=== PATIENT | female | born 1995 | race Caucasian/White ===

== ENCOUNTER 2016-10-24 18:35 | Observation (INO) | payer OTHER ==
[~2016-10-24] VITALS: Ht 160 cm; Wt 73.9 kg
[~2016-10-24 18:35] MED LIST: ACET-6134 PO; FERR-252 PO; PREN-385 PO
[2016-10-24 19:00] VITALS: BP 110/54
[2016-10-24] MEDS ORDERED: TERBUTALINE 1 MG/ML VIAL SUBQ ONE ×2 (19:30→21:27)
[2016-10-24] MEDS ORDERED: TERB2.5T6 PO (19:38)
[2016-10-24 20:04] LABS: BASOPHILS # (AUTO) 0.1 K/uL (0.00-0.22); BASOPHILS % (AUTO) 0.9 % (0.0-2.0); EOSINOPHILS # (AUTO) 0.1 K/uL (0-0.4); EOSINOPHILS % (AUTO) 0.7 % (0.0-4.0); HEMATOCRIT 32.7 % (36-48); HEMOGLOBIN 10.5 g/dL (12.0-16.0); LYMPHOCYTES # (AUTO) 2.4 K/uL (2.5-16.5); LYMPHOCYTES % (AUTO) 20.9 % (20.5-51.1); MEAN CORPUSCULAR HEMOGLOBIN 25 pg (27-31); MEAN CORPUSCULAR HGB CONC 32 g/dL (33-37); MEAN CORPUSCULAR VOLUME 79 fL (80-94); MONOCYTES # (AUTO) 0.9 K/uL (0.8-1.0); MONOCYTES % (AUTO) 7.7 % (1.7-9.3); NEUTROPHILS # (AUTO) 8.2 K/uL (1.8-7.7); NEUTROPHILS % (AUTO) 69.8 % (42.2-75.2); PLATELET COUNT (AUTO) 430 K/uL (140-450); RED BLOOD CELL COUNT(AUTO) 4.16 MIL/uL (4.20-5.40); RED CELL DISTRIBUTION WIDTH 13.9 % (11.6-13.7); WHITE BLOOD COUNT (AUTO) 11.7 K/uL (4.5-11.0)
[2016-10-24 20:26] LABS: PROTHROMBIN TIME 8.7 secs (10.8-13.4)
[2016-10-24] MEDS: LACTATED RINGERS 1,000 ML IV SCH ×2 (20:50→21:02)
[2016-10-24] MEDS ORDERED: BETAMETH ACET/BETAMETH NA PH 30 MG/5 ML VIAL IM ONE (21:27)
[2016-10-24] MEDS: BETAMETH ACET/BETAMETH NA PH 30 MG/5 ML VIAL IM SCH (21:28)
[2016-10-24 22:25] LABS: APPEARANCE,URINE CLEAR (CLEAR); BILIRUBIN,URINE NEGATIVE (NEGATIVE); BLOOD, URINE NEGATIVE (NEGATIVE); COLOR,URINE YELLOW (YELLOW); LEUKOCYTE ESTERASE ,URINE TRACE (NEGATIVE); NITRITE, URINE NEGATIVE (NEGATIVE); UGLUCOSE NEGATIVE (NEGATIVE)
[2016-10-24 23:14] LABS: RBC,URINE 3-10 (FEW) /HPF (0-5); WBC,URINE 20-60 /HPF (0-5)
[2016-10-25] MEDS ORDERED: NALBUPHINE 10 MG/ML AMP IVP ONE
[2016-10-25] MEDS ORDERED: AMPICILLIN 2,000 MG VIAL ONE ×5 (00:32→19:43)
[2016-10-25] MEDS: AMPICILLIN 2,000 MG in NACL 0.9% 100 ML IV SCH ×5 (00:33→19:44)
[2016-10-25] MEDS: LACTATED RINGERS 1,000 ML IV SCH ×2 (03:16→10:03)
[2016-10-25] MEDS ORDERED: NALBUPHINE HYDROCHLORIDE 10 MG/ML VIAL ONE (04:57)
[2016-10-25] MEDS: BETAMETH ACET/BETAMETH NA PH 30 MG/5 ML VIAL IM SCH (09:57)
[2016-10-25 19:43] VITALS: BP 110/54
== END 2016-10-25 20:45 | disposition home or self-care (01) ==
LOC: MLD 18:35 → MFCC 20:34
PROVIDERS: ADMIT Obstetrics & Gynecology; ATTEND Obstetrics & Gynecology
DX: O26.893 Other specified pregnancy related conditions, third trimester (principal); R10.9 Unspecified abdominal pain; Z3A.35 35 weeks gestation of pregnancy
CPT/HCPCS: 36415; 76805; 81001; 85025; 85379; 85384; 85610; 85730; 87086; 96361; 96365; 96366; C1758; G0378; J0290; J0702; J2300; J3105; J7120; Q0092

== ENCOUNTER 2016-11-06 15:32 | Observation (INO) | payer OTHER ==
[~2016-11-06] VITALS: Ht 160 cm; Wt 73.9 kg
[~2016-11-06 15:32] MED LIST changes: +TERB2.5T6 PO
[2016-11-06] MEDS ORDERED: TERB2.5T6 PO (16:17)
== END 2016-11-06 20:28 | disposition home or self-care (01) ==
LOC: MLD 15:32
PROVIDERS: ADMIT Obstetrics & Gynecology; ATTEND Obstetrics & Gynecology
DX: O26.893 Other specified pregnancy related conditions, third trimester (principal); Z3A.38 38 weeks gestation of pregnancy
CPT/HCPCS: 59025; 76815; 81000; G0378; Q0092

== ENCOUNTER 2016-11-12 15:25 | Observation (INO) | payer OTHER ==
[~2016-11-12] VITALS: Ht 160 cm; Wt 73.9 kg
[~2016-11-12 15:25] MED LIST changes: -ACET-6134 PO
[2016-11-12 15:56] VITALS: BP 111/60
[2016-11-12 20:47] VITALS: BP 113/61
== END 2016-11-12 21:05 | disposition home or self-care (01) ==
LOC: MLD 15:25
PROVIDERS: ADMIT Obstetrics & Gynecology; ATTEND Obstetrics & Gynecology
DX: O26.893 Other specified pregnancy related conditions, third trimester (principal); R51 Headache; Z3A.38 38 weeks gestation of pregnancy
CPT/HCPCS: 76819; C1758; G0378; Q0092

== ENCOUNTER 2016-11-20 17:48 | Inpatient (IN) | payer OTHER ==
[~2016-11-20] VITALS: Ht 160 cm; Wt 76.2 kg
[2016-11-20 18:21] VITALS: BP 110/72
[2016-11-20 19:05] LABS: BASOPHILS # (AUTO) 0.1 K/uL (0.00-0.22); BASOPHILS % (AUTO) 0.7 % (0.0-2.0); EOSINOPHILS # (AUTO) 0.1 K/uL (0-0.4); HEMATOCRIT 35.4 % (36-48); HEMOGLOBIN 11.1 g/dL (12.0-16.0); LYMPHOCYTES # (AUTO) 2.6 K/uL (2.5-16.5); LYMPHOCYTES % (AUTO) 29.1 % (20.5-51.1); MEAN CORPUSCULAR HEMOGLOBIN 24 pg (27-31); MEAN CORPUSCULAR HGB CONC 32 g/dL (33-37); MEAN CORPUSCULAR VOLUME 76 fL (80-94); MONOCYTES # (AUTO) 0.3 K/uL (0.8-1.0); MONOCYTES % (AUTO) 3.8 % (1.7-9.3); NEUTROPHILS # (AUTO) 5.7 K/uL (1.8-7.7); NEUTROPHILS % (AUTO) 65.4 % (42.2-75.2); PLATELET COUNT (AUTO) 389 K/uL (140-450); RED BLOOD CELL COUNT(AUTO) 4.63 MIL/uL (4.20-5.40); RED CELL DISTRIBUTION WIDTH 15.5 % (11.6-13.7); WHITE BLOOD COUNT (AUTO) 8.8 K/uL (4.5-11.0)
[2016-11-20 19:10] LABS: BILIRUBIN,URINE 1+ (NEGATIVE); BLOOD, URINE 2+ (NEGATIVE); COLOR,URINE YELLOW (YELLOW); LEUKOCYTE ESTERASE ,URINE 2+ (NEGATIVE); NITRITE, URINE NEGATIVE (NEGATIVE); UGLUCOSE NEGATIVE (NEGATIVE)
[2016-11-20 19:11] LABS: APPEARANCE,URINE CLOUDY (CLEAR)
[2016-11-20 19:20] LABS: RBC,URINE TOO NUMEROUS TO COUN /HPF (0-5)
[2016-11-20 19:21] LABS: ANION GAP 13.3 (8-16); CARBON DIOXIDE 24.6 mmol/L (21-32); CREATININE 0.7 mg/dL (0.6-1.3); POTASSIUM 3.9 mmol/L (3.5-5.1)
[2016-11-20 19:27] LABS: ALBUMIN 2.4 g/dL (3.4-5.0); TOTAL BILIRUBIN 0.4 mg/dL (0.0-1.0)
[2016-11-20] MEDS: LACTATED RINGERS 1,000 ML IV SCH (19:53)
[2016-11-20] MEDS ORDERED: OXYTOCIN 20 UNITS in LACTATED RINGERS 1,000 ML IV SCH (20:03)
[2016-11-20] MEDS ORDERED: NALBUPHINE 10 MG/ML AMP IVP PRN (20:05)
[2016-11-20] MEDS ORDERED: MISOPROSTOL 25 MCG TAB VG ONE (20:05)
[2016-11-20 20:17] LABS: BARBITURATE, URINE NEG. ng/ml (NEG <=200); BENZODIAZEPINE, URINE NEG. ng/mL (NEG <=200); CANNABINOID, URINE NEG. ng/mL (NEG <=50); COCAINE, URINE NEG. ng/mL (NEG <=300); OPIATE, URINE NEG. ng/mL (NEG <=2000); PHENCYCLIDINE SCREEN,URINE NEG. ng/mL (NEG <=25)
[2016-11-20] MEDS ORDERED: MISOPROSTOL 25 MCG TAB ONE (20:21)
[2016-11-20] MEDS ORDERED: NALBUPHINE HYDROCHLORIDE 10 MG/ML VIAL ONE (22:28)
[2016-11-21] MEDS: LACTATED RINGERS 1,000 ML IV SCH ×2 (00:14→01:11)
[2016-11-21] MEDS ORDERED: ROPIVACAINE 0.2%/NS PREMIX 250 ML EPI ONE (00:20)
[2016-11-21] MEDS ORDERED: ROPIVACAINE 0.2%/NS PREMIX 250 ML EPI SCH (00:30)
[2016-11-21] MEDS ORDERED: LIDOCAINE 1% 50 ML ONE (01:36)
[2016-11-21] MEDS ORDERED: OXYTOCIN 20 UNITS/LR PREMIX 1,000 ML IV ONE (03:00)
[2016-11-21] MEDS ORDERED: OXYTOCIN 10 UNITS/ML VIAL ONE (03:00)
[2016-11-21] MEDS ORDERED: OXYTOCIN 20 UNITS in LACTATED RINGERS 1,000 ML IV SCH (05:17)
[2016-11-21] MEDS ORDERED: MEASLES, MUMPS, AND RUBELLA 1 VIAL SQVAC PRN (05:20)
[2016-11-21] MEDS ORDERED: BISACODYL 5 MG TABEC PO PRN (05:20)
[2016-11-21] MEDS ORDERED: ACETAMINOPHEN 325 MG TAB PO PRN (05:20)
--- NOTE | 2016-11-21 06:48 | NUR ---
PATIENT HAS BEEN SCREENED AND CATEGORIZED LOW NUTRITION RISK. PATIENT WILL BE SEEN WITHIN 7 DAYS OF ADMISSION. 11/26/16 JIMY GOLDSTEIN MS, RDN
[2016-11-21] MEDS: oxyCODONE/APAP 5/325 MG 1 TAB TAB PO PRN (21:06)
[2016-11-21] MEDS ORDERED: INFLUENZA VIRUS VACCINE QUAD 0.5 ML SYR IMVAC SCH (22:00)
[2016-11-22 08:30] LABS: BASOPHILS # (AUTO) 0.2 K/uL (0.00-0.22); BASOPHILS % (AUTO) 1.7 % (0.0-2.0); EOSINOPHILS # (AUTO) 0.1 K/uL (0-0.4); EOSINOPHILS % (AUTO) 0.9 % (0.0-4.0); HEMATOCRIT 34.1 % (36-48); HEMOGLOBIN 10.8 g/dL (12.0-16.0); LYMPHOCYTES # (AUTO) 4.5 K/uL (2.5-16.5); LYMPHOCYTES % (AUTO) 40.5 % (20.5-51.1); MEAN CORPUSCULAR HEMOGLOBIN 24 pg (27-31); MEAN CORPUSCULAR HGB CONC 32 g/dL (33-37); MEAN CORPUSCULAR VOLUME 77 fL (80-94); MONOCYTES # (AUTO) 0.7 K/uL (0.8-1.0); MONOCYTES % (AUTO) 6.4 % (1.7-9.3); NEUTROPHILS # (AUTO) 5.5 K/uL (1.8-7.7); NEUTROPHILS % (AUTO) 50.5 % (42.2-75.2); PLATELET COUNT (AUTO) 343 K/uL (140-450); RED BLOOD CELL COUNT(AUTO) 4.45 MIL/uL (4.20-5.40); RED CELL DISTRIBUTION WIDTH 16.1 % (11.6-13.7)
[2016-11-22] MEDS: oxyCODONE/APAP 5/325 MG 1 TAB TAB PO PRN (20:01)
== END 2016-11-23 15:20 | disposition home or self-care (01) | DRG 560 ==
LOC: MLD 17:48 → MFCC 11-21 08:45
PROVIDERS: ADMIT Obstetrics & Gynecology; ATTEND Obstetrics & Gynecology
PROC: 10E0XZZ Delivery of Products of Conception, External Approach (ICD-10-PCS; principal; 2016-11-21)
PROC: 10907ZC Drainage of Amniotic Fluid, Therapeutic from Products of Conception, Via Natural or Artificial Opening (ICD-10-PCS; 2016-11-21)
PROC: 3E0S3BZ Introduction of Anesthetic Agent into Epidural Space, Percutaneous Approach (ICD-10-PCS; 2016-11-21)
PROC: 00HU33Z Insertion of Infusion Device into Spinal Canal, Percutaneous Approach (ICD-10-PCS; 2016-11-21)
PROC: 3E0234Z Introduction of Serum, Toxoid and Vaccine into Muscle, Percutaneous Approach (ICD-10-PCS; 2016-11-22)
DX: O77.0 Labor and delivery complicated by meconium in amniotic fluid (principal); O69.81X0 Labor and delivery complicated by cord around neck, without compression, not applicable or unspecified; Z37.0 Single live birth; Z3A.39 39 weeks gestation of pregnancy; Z23 Encounter for immunization
CPT/HCPCS: 36415; 51702; 59409; 80053; 80305; 81001; 85025; 86592; 86886; 86900; 86901; 87086; 90658; J2001; J2300; J2590; J2795; J7030; J7120

== ENCOUNTER 2017-10-29 05:45 | Inpatient (IN) | payer OTHER ==
[~2017-10-29] VITALS: Ht 160 cm; Wt 77.1 kg
[~2017-10-29 05:45] MED LIST changes: -TERB2.5T6 PO
[2017-10-29] MEDS ORDERED: LACTATED RINGERS 1,000 ML IV SCH (06:58)
[2017-10-29] MEDS ORDERED: LACTATED RINGERS 500 ML IV ONE (07:00)
[2017-10-29] MEDS ORDERED: OXYTOCIN 10 UNITS/ML VIAL IM SCH (07:00)
[2017-10-29] MEDS ORDERED: NALBUPHINE 10 MG/ML AMP IVP PRN (07:00)
[2017-10-29] MEDS ORDERED: PROMETHAZINE 25 MG/ML VIAL IVP PRN (07:00)
[2017-10-29] MEDS ORDERED: OXYTOCIN 20 UNITS in LACTATED RINGERS 1,000 ML IV SCH ×2 (07:05→20:02)
[2017-10-29] MEDS ORDERED: PROMETHAZINE 25 MG/ML VIAL ONE (07:34)
[2017-10-29] MEDS ORDERED: NALBUPHINE 10 MG/ML AMP ONE (07:34)
[2017-10-29] MEDS ORDERED: ROPIVACAINE 0.2%/NS PREMIX 250 ML EPI ONE (08:00)
[2017-10-29] MEDS ORDERED: BUPIVACAINE-MPF 0.5% 30 ML VIAL INJ ONE (08:03)
[2017-10-29 08:12] LABS: BASOPHILS # (AUTO) 0.1 K/uL (0.00-0.22); BASOPHILS % (AUTO) 0.8 % (0.0-2.0); EOSINOPHILS % (AUTO) 0.2 % (0.0-4.0); HEMATOCRIT 39.5 % (36-48); HEMOGLOBIN 12.9 g/dL (12.0-16.0); LYMPHOCYTES # (AUTO) 3.2 K/uL (2.5-16.5); LYMPHOCYTES % (AUTO) 30.1 % (20.5-51.1); MEAN CORPUSCULAR HEMOGLOBIN 26 pg (27-31); MEAN CORPUSCULAR HGB CONC 33 g/dL (33-37); MONOCYTES # (AUTO) 0.5 K/uL (0.8-1.0); MONOCYTES % (AUTO) 4.2 % (1.7-9.3); NEUTROPHILS % (AUTO) 64.7 % (42.2-75.2); PLATELET COUNT (AUTO) 423 K/uL (140-450); RED BLOOD CELL COUNT(AUTO) 4.94 MIL/uL (4.20-5.40); RED CELL DISTRIBUTION WIDTH 16.8 % (11.6-13.7); WHITE BLOOD COUNT (AUTO) 10.8 K/uL (4.8-10.8)
[2017-10-29 08:12] LABS: APPEARANCE,URINE SL CLOUDY (CLEAR); BILIRUBIN,URINE NEGATIVE (NEGATIVE); BLOOD, URINE NEGATIVE (NEGATIVE); COLOR,URINE YELLOW (YELLOW); LEUKOCYTE ESTERASE ,URINE 1+ (NEGATIVE); NITRITE, URINE NEGATIVE (NEGATIVE); UGLUCOSE NEGATIVE (NEGATIVE)
[2017-10-29 08:26] LABS: RBC,URINE 0-5 (RARE) /HPF (0-5); WBC,URINE 6-15 (FEW) /HPF (0-5)
--- NOTE | 2017-10-29 08:35 | NUR ---
PATIENT HAS BEEN SCREENED AND CATEGORIZED LOW NUTRITION RISK. PATIENT WILL BE SEEN WITHIN 7 DAYS OF ADMISSION. 11/04/[address]
[2017-10-29 08:50] VITALS: BP 105/52
[2017-10-29] MEDS ORDERED: ROPIVACAINE 0.2%/NS PREMIX 250 ML EPI SCH (08:55)
[2017-10-29] MEDS ORDERED: OXYTOCIN 10 UNITS/ML VIAL ONE (11:41)
[2017-10-29 12:08] LABS: BARBITURATE, URINE NEG. ng/ml (NEG <=200); BENZODIAZEPINE, URINE NEG. ng/mL (NEG <=200); CANNABINOID, URINE NEG. ng/mL (NEG <=50); COCAINE, URINE NEG. ng/mL (NEG <=300); OPIATE, URINE NEG. ng/mL (NEG <=2000); PHENCYCLIDINE SCREEN,URINE NEG. ng/mL (NEG <=25)
[2017-10-29] MEDS ORDERED: MEASLES, MUMPS, AND RUBELLA 1 VIAL SQVAC PRN (20:05)
[2017-10-29] MEDS ORDERED: ACETAMINOPHEN 325 MG TAB PO PRN (20:05)
[2017-10-29] MEDS: IBUPROFEN 600 MG TAB PO PRN (20:46)
[2017-10-30] MEDS: IBUPROFEN 600 MG TAB PO PRN ×2 (02:50→12:33)
[2017-10-30 10:20] LABS: BASOPHILS # (AUTO) 0.1 K/uL (0.00-0.22); BASOPHILS % (AUTO) 0.8 % (0.0-2.0); EOSINOPHILS % (AUTO) 0.4 % (0.0-4.0); HEMATOCRIT 39.7 % (36-48); HEMOGLOBIN 12.9 g/dL (12.0-16.0); LYMPHOCYTES # (AUTO) 3.8 K/uL (2.5-16.5); LYMPHOCYTES % (AUTO) 34.7 % (20.5-51.1); MEAN CORPUSCULAR HEMOGLOBIN 26 pg (27-31); MEAN CORPUSCULAR HGB CONC 32 g/dL (33-37); MEAN CORPUSCULAR VOLUME 81.4 fL (80-94); MONOCYTES # (AUTO) 0.7 K/uL (0.8-1.0); MONOCYTES % (AUTO) 6.6 % (1.7-9.3); NEUTROPHILS # (AUTO) 6.2 K/uL (1.8-7.7); NEUTROPHILS % (AUTO) 57.5 % (42.2-75.2); PLATELET COUNT (AUTO) 375 K/uL (140-450); RED BLOOD CELL COUNT(AUTO) 4.87 MIL/uL (4.20-5.40); RED CELL DISTRIBUTION WIDTH 17.3 % (11.6-13.7); WHITE BLOOD COUNT (AUTO) 10.8 K/uL (4.8-10.8)
[2017-10-31] MEDS ORDERED: FERR325E14 PO (12:31)
[2017-10-31] MEDS ORDERED: ACET-9800 PO (12:32)
== END 2017-10-31 15:15 | disposition home or self-care (01) | DRG 560 ==
LOC: MLD 05:45 → MFCC 14:15
PROVIDERS: ADMIT Obstetrics & Gynecology; ATTEND Obstetrics & Gynecology
PROC: 10E0XZZ Delivery of Products of Conception, External Approach (ICD-10-PCS; principal; 2017-10-29)
PROC: 10907ZC Drainage of Amniotic Fluid, Therapeutic from Products of Conception, Via Natural or Artificial Opening (ICD-10-PCS; 2017-10-29)
PROC: 00HU33Z Insertion of Infusion Device into Spinal Canal, Percutaneous Approach (ICD-10-PCS; 2017-10-29)
PROC: 3E0R3BZ Introduction of Anesthetic Agent into Spinal Canal, Percutaneous Approach (ICD-10-PCS; 2017-10-29)
DX: O80 Encounter for full-term uncomplicated delivery (principal); Z28.21 Immunization not carried out because of patient refusal; Z37.0 Single live birth; Z3A.39 39 weeks gestation of pregnancy
CPT/HCPCS: 36415; 51702; 59409; 80305; 81001; 85025; 86592; 86886; 86900; 86901; 87086; 87186; 87340; J2300; J2550; J2590; J2795; J3490; J7120

== ENCOUNTER 2018-09-16 13:49 | Observation (INO) | payer OTHER ==
[~2018-09-16] VITALS: Ht 160 cm; Wt 77.1 kg
[~2018-09-16 13:49] MED LIST changes: +ACET-9800 PO; +FERR325E14 PO
[2018-09-16 14:44] VITALS: BP 104/54
== END 2018-09-16 19:36 | disposition home or self-care (01) ==
LOC: MLD 13:49
PROVIDERS: ADMIT Obstetrics & Gynecology; ATTEND Obstetrics & Gynecology
DX: O26.893 Other specified pregnancy related conditions, third trimester (principal); R10.9 Unspecified abdominal pain; Z3A.35 35 weeks gestation of pregnancy
CPT/HCPCS: 76805; G0378; Q0092; 81000

== ENCOUNTER 2018-10-02 17:53 | Inpatient (IN) | payer OTHER ==
[~2018-10-02] VITALS: Ht 160 cm; Wt 81.6 kg
[2018-10-02] MEDS: LACTATED RINGERS 1,000 ML IV SCH (03:34)
[~2018-10-02 17:53] MED LIST changes: -ACET-9800 PO; -FERR325E14 PO; -PREN-385 PO
[2018-10-02] MEDS ORDERED: FERR-252 PO (18:21)
[2018-10-02] MEDS ORDERED: PROMETHAZINE 25 MG/ML VIAL IVP PRN (18:25)
[2018-10-02] MEDS ORDERED: NALBUPHINE 10 MG/ML AMP IVP PRN (18:25)
[2018-10-02] MEDS ORDERED: OXYTOCIN 10 UNITS/ML VIAL IM SCH (18:25)
[2018-10-02] MEDS ORDERED: METHYLERGONOVINE 0.2 MG/ML AMP IM PRN (18:25)
[2018-10-02] MEDS ORDERED: CARBOPROST 250 MCG/ML AMP IM PRN (18:25)
[2018-10-02] MEDS ORDERED: OXYTOCIN 20 UNITS in LACTATED RINGERS 1,000 ML IV SCH (18:30)
[2018-10-02 19:38] LABS: BASOPHILS % (AUTO) 0.3 % (0.0-2.0); EOSINOPHILS # (AUTO) 0.1 K/uL (0-0.4); EOSINOPHILS % (AUTO) 0.5 % (0.0-4.0); HEMATOCRIT 34.2 % (36-48); HEMOGLOBIN 11.1 g/dL (12.0-16.0); LYMPHOCYTES # (AUTO) 2.5 K/uL (2.5-16.5); LYMPHOCYTES % (AUTO) 20.9 % (20.5-51.1); MEAN CORPUSCULAR HEMOGLOBIN 25 pg (27-31); MEAN CORPUSCULAR HGB CONC 32 g/dL (33-37); MONOCYTES # (AUTO) 0.8 K/uL (0.8-1.0); MONOCYTES % (AUTO) 6.4 % (1.7-9.3); NEUTROPHILS # (AUTO) 8.7 K/uL (1.8-7.7); NEUTROPHILS % (AUTO) 71.9 % (42.2-75.2); PLATELET COUNT (AUTO) 359 K/uL (140-450); RED BLOOD CELL COUNT(AUTO) 4.43 MIL/uL (4.20-5.40); WHITE BLOOD COUNT (AUTO) 12.1 K/uL (4.8-10.8)
[2018-10-02 19:46] LABS: BARBITURATE, URINE NEG. ng/ml (NEG <=200); BENZODIAZEPINE, URINE NEG. ng/mL (NEG <=200); CANNABINOID, URINE POS. ng/mL (NEG <=50); COCAINE, URINE NEG. ng/mL (NEG <=300); OPIATE, URINE NEG. ng/mL (NEG <=2000); PHENCYCLIDINE SCREEN,URINE NEG. ng/mL (NEG <=25)
[2018-10-02 19:53] LABS: APPEARANCE,URINE HAZY (CLEAR); BILIRUBIN,URINE NEGATIVE (NEGATIVE); BLOOD, URINE NEGATIVE (NEGATIVE); COLOR,URINE YELLOW (YELLOW); LEUKOCYTE ESTERASE ,URINE 1+ (NEGATIVE); NITRITE, URINE POSITIVE (NEGATIVE); UGLUCOSE NEGATIVE (NEGATIVE)
[2018-10-02 20:00] LABS: RBC,URINE 0-5 /HPF (0-5); WBC,URINE TOO MANY TO COUNT /HPF (0-5)
[2018-10-02 20:30] VITALS: BP 111/64
[2018-10-03] MEDS ORDERED: OXYTOCIN 20 UNITS/LR PREMIX 1,000 ML IV ONE (04:14)
[2018-10-03] MEDS ORDERED: BUPIVACAINE 0.125%/NS PREMIX 250 ML ONE (04:22)
[2018-10-03] MEDS: LACTATED RINGERS 1,000 ML IV SCH ×2 (04:43→08:08)
[2018-10-03] MEDS ORDERED: ROPIVACAINE 0.2%/NS PREMIX 100 ML EPI ONE ×2 (04:56→12:47)
--- NOTE | 2018-10-03 08:10 | NUR ---
PATIENT HAS BEEN SCREENED AND CATEGORIZED LOW NUTRITION RISK. PATIENT WILL BE SEEN WITHIN 7 DAYS OF ADMISSION. 10/09/[address]
[2018-10-03] MEDS ORDERED: LIDOCAINE 1% 500 MG/50 ML VIAL ONE (08:33)
[2018-10-03] MEDS ORDERED: OXYTOCIN 10 UNITS/ML VIAL ONE (11:26)
[2018-10-03] MEDS ORDERED: OXYTOCIN 20 UNITS in LACTATED RINGERS 1,000 ML IV SCH (18:17)
[2018-10-03] MEDS ORDERED: ACETAMINOPHEN 325 MG TAB PO PRN (18:20)
[2018-10-03] MEDS ORDERED: MEASLES, MUMPS, AND RUBELLA 1 VIAL SQVAC PRN (18:20)
[2018-10-03] MEDS: IBUPROFEN 600 MG TAB PO PRN (19:53)
[2018-10-04] MEDS: IBUPROFEN 600 MG TAB PO PRN ×2 (03:11→19:32)
[2018-10-04 10:35] LABS: BASOPHILS % (AUTO) 0.3 % (0.0-2.0); EOSINOPHILS % (AUTO) 0.2 % (0.0-4.0); HEMATOCRIT 34.6 % (36-48); HEMOGLOBIN 11.1 g/dL (12.0-16.0); LYMPHOCYTES # (AUTO) 2.1 K/uL (2.5-16.5); LYMPHOCYTES % (AUTO) 18.9 % (20.5-51.1); MEAN CORPUSCULAR HEMOGLOBIN 25 pg (27-31); MEAN CORPUSCULAR HGB CONC 32 g/dL (33-37); MEAN CORPUSCULAR VOLUME 77.9 fL (80-94); MONOCYTES # (AUTO) 0.4 K/uL (0.8-1.0); NEUTROPHILS # (AUTO) 8.6 K/uL (1.8-7.7); NEUTROPHILS % (AUTO) 76.6 % (42.2-75.2); PLATELET COUNT (AUTO) 323 K/uL (140-450); RED BLOOD CELL COUNT(AUTO) 4.44 MIL/uL (4.20-5.40); RED CELL DISTRIBUTION WIDTH 16.2 % (11.6-13.7); WHITE BLOOD COUNT (AUTO) 11.3 K/uL (4.8-10.8)
== END 2018-10-05 15:40 | disposition home or self-care (01) | DRG 560 ==
LOC: MLD 17:53 → MFCC 10-03 19:40
PROVIDERS: ADMIT Obstetrics & Gynecology; ATTEND Obstetrics & Gynecology
PROC: 10E0XZZ Delivery of Products of Conception, External Approach (ICD-10-PCS; principal; 2018-10-03)
PROC: 10907ZC Drainage of Amniotic Fluid, Therapeutic from Products of Conception, Via Natural or Artificial Opening (ICD-10-PCS; 2018-10-03)
PROC: 3E033VJ Introduction of Other Hormone into Peripheral Vein, Percutaneous Approach (ICD-10-PCS; 2018-10-03)
PROC: 00HU33Z Insertion of Infusion Device into Spinal Canal, Percutaneous Approach (ICD-10-PCS; 2018-10-03)
PROC: 3E0R3BZ Introduction of Anesthetic Agent into Spinal Canal, Percutaneous Approach (ICD-10-PCS; 2018-10-03)
DX: O69.81X0 Labor and delivery complicated by cord around neck, without compression, not applicable or unspecified (principal); Z37.0 Single live birth; Z3A.39 39 weeks gestation of pregnancy
CPT/HCPCS: 36415; 76815; 80305; 81001; 85025; 86592; 86886; 86900; 86901; 87086; 87186; J2001; J2590; J2795; J3490; J7120; Q0092

== ENCOUNTER 2019-10-24 11:59 | Observation (INO) | payer OTHER, SELFPAY ==
[~2019-10-24] VITALS: Ht 160 cm; Wt 86.2 kg
[2019-10-24 12:59] VITALS: BP 106/59
== END 2019-10-24 14:10 | disposition home or self-care (01) ==
LOC: MLD 11:59
PROVIDERS: ADMIT Obstetrics & Gynecology; ATTEND Obstetrics & Gynecology
DX: O62.9 Abnormality of forces of labor, unspecified (principal); Z20.828 Contact with and (suspected) exposure to other viral communicable diseases; Z3A.38 38 weeks gestation of pregnancy
CPT/HCPCS: 59025; 76805; 81000; 87426; G0378; Q0092

== ENCOUNTER 2019-10-27 17:38 | Inpatient (IN) | payer OTHER, SELFPAY ==
[~2019-10-27] VITALS: Ht 160 cm; Wt 86.2 kg
[2019-10-27] MEDS: LACTATED RINGERS 1,000 ML IV SCH (03:28)
[2019-10-27] MEDS ORDERED: OXYTOCIN 20 UNITS in LACTATED RINGERS 1,000 ML IV SCH (18:20)
[2019-10-27] MEDS ORDERED: OXYTOCIN 10 UNITS/ML VIAL IM SCH (18:20)
[2019-10-27] MEDS ORDERED: PROMETHAZINE 25 MG/ML VIAL IVP PRN (18:20)
[2019-10-27] MEDS ORDERED: METHYLERGONOVINE 0.2 MG/ML AMP IM PRN (18:20)
[2019-10-27] MEDS ORDERED: CARBOPROST 250 MCG/ML AMP IM PRN (18:20)
[2019-10-27 18:37] LABS: BASOPHILS # (AUTO) 0.1 K/uL (0.00-0.22); BASOPHILS % (AUTO) 0.6 % (0.0-2.0); EOSINOPHILS # (AUTO) 0.1 K/uL (0-0.4); EOSINOPHILS % (AUTO) 0.5 % (0.0-4.0); HEMOGLOBIN 12.3 g/dL (12.0-16.0); LYMPHOCYTES # (AUTO) 2.1 K/uL (2.5-16.5); LYMPHOCYTES % (AUTO) 19.6 % (20.5-51.1); MEAN CORPUSCULAR HEMOGLOBIN 27 pg (27-31); MEAN CORPUSCULAR HGB CONC 32 g/dL (33-37); MEAN CORPUSCULAR VOLUME 82.1 fL (80-94); MONOCYTES # (AUTO) 0.5 K/uL (0.8-1.0); NEUTROPHILS % (AUTO) 74.3 % (42.2-75.2); PLATELET COUNT (AUTO) 317 K/uL (140-450); RED BLOOD CELL COUNT(AUTO) 4.63 MIL/uL (4.20-5.40); RED CELL DISTRIBUTION WIDTH 21.8 % (11.6-13.7); WHITE BLOOD COUNT (AUTO) 10.7 K/uL (4.8-10.8)
[2019-10-27 18:54] LABS: ALBUMIN 2.5 g/dL (3.4-5.0); ANION GAP 15.7 (8-16); CARBON DIOXIDE 20.6 mmol/L (21-32); CREATININE 0.7 mg/dL (0.6-1.3); POTASSIUM 3.3 mmol/L (3.5-5.1); TOTAL BILIRUBIN 0.3 mg/dL (0.0-1.0)
[2019-10-27 19:04] VITALS: BP 110/55
[2019-10-27 19:06] LABS: BILIRUBIN,URINE 1+ (NEGATIVE); BLOOD, URINE NEGATIVE (NEGATIVE); COLOR,URINE YELLOW (YELLOW); LEUKOCYTE ESTERASE ,URINE TRACE (NEGATIVE); NITRITE, URINE POSITIVE (NEGATIVE); UGLUCOSE NEGATIVE (NEGATIVE)
[2019-10-27 19:07] LABS: APPEARANCE,URINE HAZY (CLEAR)
[2019-10-27 19:28] LABS: RBC,URINE NONE SEEN /HPF (0-5)
[2019-10-28] MEDS ORDERED: OXYTOCIN 20 UNITS/LR PREMIX 1,000 ML IV ONE (02:56)
[2019-10-28] MEDS: LACTATED RINGERS 1,000 ML IV SCH (03:28)
[2019-10-28] MEDS ORDERED: ROPIVACAINE 0.2%/NS PREMIX 200 ML EPI ONE (07:39)
[2019-10-28] MEDS ORDERED: LIDOCAINE 1% 500 MG/50 ML VIAL ONE (09:36)
[2019-10-28] MEDS ORDERED: OXYTOCIN 20 UNITS in LACTATED RINGERS 1,000 ML IV SCH (14:27)
[2019-10-28] MEDS ORDERED: DOCUSATE SODIUM 100 MG GELCAP PO PRN (14:30)
[2019-10-28] MEDS ORDERED: ACETAMINOPHEN 325 MG TAB PO PRN (14:30)
[2019-10-28] MEDS ORDERED: MEASLES, MUMPS, AND RUBELLA 1 VIAL SQVAC PRN (14:30)
[2019-10-28] MEDS ORDERED: bisacodyL 5 MG TABEC PO PRN (14:30)
[2019-10-28] MEDS: IBUPROFEN 600 MG TAB PO PRN (18:28)
[2019-10-29] MEDS: IBUPROFEN 600 MG TAB PO PRN (02:37)
[2019-10-29 09:15] LABS: BASOPHILS % (AUTO) 0.4 % (0.0-2.0); EOSINOPHILS # (AUTO) 0.1 K/uL (0-0.4); EOSINOPHILS % (AUTO) 0.9 % (0.0-4.0); HEMOGLOBIN 12.3 g/dL (12.0-16.0); LYMPHOCYTES # (AUTO) 3.9 K/uL (2.5-16.5); LYMPHOCYTES % (AUTO) 34.4 % (20.5-51.1); MEAN CORPUSCULAR HEMOGLOBIN 27 pg (27-31); MEAN CORPUSCULAR HGB CONC 32 g/dL (33-37); MEAN CORPUSCULAR VOLUME 82.2 fL (80-94); MONOCYTES # (AUTO) 0.4 K/uL (0.8-1.0); MONOCYTES % (AUTO) 3.9 % (1.7-9.3); NEUTROPHILS # (AUTO) 6.9 K/uL (1.8-7.7); NEUTROPHILS % (AUTO) 60.4 % (42.2-75.2); PLATELET COUNT (AUTO) 298 K/uL (140-450); RED BLOOD CELL COUNT(AUTO) 4.62 MIL/uL (4.20-5.40); WHITE BLOOD COUNT (AUTO) 11.4 K/uL (4.8-10.8)
--- NOTE | 2019-10-29 11:07 | NUR ---
PATIENT HAS BEEN SCREENED AND CATEGORIZED LOW NUTRITION RISK. PATIENT WILL BE SEEN WITHIN 7 DAYS OF ADMISSION. 11/03/19 ANITHA CHINO MBA, RD
== END 2019-10-30 16:40 | disposition home or self-care (01) | DRG 560 ==
LOC: MLD 17:38 → MFCC 10-28 16:10
PROVIDERS: ADMIT Obstetrics & Gynecology; ATTEND Obstetrics & Gynecology
PROC: 10E0XZZ Delivery of Products of Conception, External Approach (ICD-10-PCS; principal; 2019-10-28)
PROC: 10907ZC Drainage of Amniotic Fluid, Therapeutic from Products of Conception, Via Natural or Artificial Opening (ICD-10-PCS; 2019-10-28)
PROC: 3E0R3BZ Introduction of Anesthetic Agent into Spinal Canal, Percutaneous Approach (ICD-10-PCS; 2019-10-28)
PROC: 00HU33Z Insertion of Infusion Device into Spinal Canal, Percutaneous Approach (ICD-10-PCS; 2019-10-28)
PROC: 3E0234Z Introduction of Serum, Toxoid and Vaccine into Muscle, Percutaneous Approach (ICD-10-PCS; 2019-10-28)
PROC: 3E0134Z Introduction of Serum, Toxoid and Vaccine into Subcutaneous Tissue, Percutaneous Approach (ICD-10-PCS; 2019-10-28)
DX: O99.214 Obesity complicating childbirth (principal); Z3A.39 39 weeks gestation of pregnancy; Z37.0 Single live birth; Z23 Encounter for immunization; E66.01 Morbid (severe) obesity due to excess calories
CPT/HCPCS: 36415; 51702; 59409; 80053; 81001; 85025; 86592; 86886; 86900; 86901; 87086; 87186; J2001; J2590; J2795; J7120